=== PATIENT | male | born 1970 | race Caucasian/White ===

== ENCOUNTER 2017-03-30 08:44 | Day surgery (SDC) | payer OTHER ==
[2017-03-30] MEDS ORDERED: ceFAZolin 2 GM/50 ML 2 GM/50 ML BAG IV ONE (08:59)
[2017-03-30] MEDS ORDERED: LACTATED RINGERS 1,000 ML IV ONE ×2 (09:10→11:52)
[2017-03-30] MEDS ORDERED: MIDAZOLAM 2 MG/2 ML VIAL IVP ONE (10:00)
[2017-03-30] MEDS ORDERED: fentaNYL 100 MCG/2 ML VIAL IVP ONE (10:00)
[2017-03-30] MEDS ORDERED: GLYCOPYRROLATE 1 MG/5 ML VIAL IVP ONE (10:00)
[2017-03-30] MEDS ORDERED: NEOSTIGMINE 1 MG/1 ML 10 ML MDV IVP ONE (10:00)
[2017-03-30] MEDS ORDERED: DEXAMETHASONE 4 MG/ML VIAL IVP ONE (10:00)
[2017-03-30] MEDS ORDERED: ONDANSETRON 4 MG/2 ML VIAL IVP ONE (10:00)
[2017-03-30] MEDS ORDERED: PROPOFOL 200 MG/20 ML VIAL IVP ONE (10:00)
[2017-03-30] MEDS ORDERED: ROCURONIUM 50 MG/5 ML VIAL IVP ONE (10:00)
[2017-03-30] MEDS ORDERED: LIDOCAINE-MPF 2% 5 ML VIAL IM ONE (10:00)
[2017-03-30] MEDS ORDERED: BUPIVACAINE 0.25% PF 30 ML VIAL SUBQ ONE ×2 (10:38→11:09)
[2017-03-30] MEDS ORDERED: LIDOCAINE MPF 1%-EPI 1:200000 30 ML VIAL SUBQ ONE ×2 (10:39→11:09)
[2017-03-30] MEDS ORDERED: MEPERIDINE 50 MG/ML SYRINGE ONE (11:49)
--- NOTE | 2017-03-30 13:30 | OPERATIVE REPORT ---
DATE OF SERVICE: 03/30/2017 Physician: Viola Waldrop MD DATE OF SURGERY: 03/30/2017 SURGEON: Viola Waldrop MD PROCEDURE: Excision of upper back lipoma. PREOPERATIVE DIAGNOSIS: Upper back lipoma. POSTOPERATIVE DIAGNOSIS: Upper back lipoma. INDICATION FOR PROCEDURE: This is a 46-year-old male with a growth on his upper back for the past several years, which is increasing in size. FINDINGS: After obtaining informed consent from the patient, he was brought into the operating room and positioned in the prone position after being intubated by Anesthesia. Pressure points were cared for. SCD boots were applied. Preoperative antibiotics were administered. He was then prepped and draped in the usual sterile fashion, and a timeout was taken according to protocol. An 8 cm incision was created in the transverse fashion overlying the palpable upper back mass which was to the right of the midline. This was deepened down through the skin through the subcutaneous tissue to the lipoma. This lipoma was subsequently circumferentially dissected from the surrounding skin and subcutaneous tissue down to the level of the musculature. It was circumferentially dissected down to the musculature and eventually was able to be exteriorized and dissected off the musculature bed. There was some bleeding during this process, which was controlled with a combination of electrocautery and 3-0 Vicryl sutures. The lipoma was noted to be quite adherent to the surrounding tissues and required approximately 30 minutes of careful dissection to completely excise. Its measurements were noted to be 12 x 14 cm. The wound was then inspected and irrigated. Persistent lipomatous tissue was noted in the medial aspect of the wound. This was grasped with an Allis clamp and excised. This piece of lipoma was noted to be 5 x 4 cm. The cavity was then inspected and no residual lipomatous tissue was noted. The muscle bed was profusely irrigated and hemostasis was achieved using electrocautery. Due to the large cavity, a 10-Turkmen, round LOI drain was inserted through a lateral incision and sutured into place. The incision was then closed in layers with a deep layer consisting of interrupted 3-0 Vicryl, subcutaneous tissues of 3-0 interrupted Vicryl and a running 4-0 Monocryl. Benzoin and Steri-Strips and a sterile dressing were applied. The patient was subsequently extubated and taken to the recovery room in stable condition. ESTIMATED BLOOD LOSS: 30 mL COMPLICATIONS: None. SPECIMEN: Upper back lipoma. TD: 03/30/2017 14:29 MTDD
[2017-03-30 14:00] VITALS: BP 138/94
== END 2017-03-30 08:45 | disposition home or self-care (01) ==
LOC: SDS 08:44
PROVIDERS: ATTEND Surgery
PROC: 0JB70ZZ Excision of Back Subcutaneous Tissue and Fascia, Open Approach (ICD-10-PCS; principal; 2017-03-30 10:00)
DX: D17.1 Benign lipomatous neoplasm of skin and subcutaneous tissue of trunk (principal)
CPT/HCPCS: 21931; J0690; J7120; 88304

== ENCOUNTER 2021-04-28 05:22 | Inpatient (IN) | payer OTHER ==
[2021-04-28] MEDS ORDERED: SODIUM CHLORIDE 0.9% 1,000 ML IV STA (05:40)
[2021-04-28 05:52] LABS: BASOPHILS % (AUTO) 0.1 %; EOSINOPHILS % (AUTO) 0.1 %; HCT - HEMATOCRIT 45.2 % (42.0-52.0); HGB - HEMOGLOBIN 15.7 g/dL (14.0-18.0); LYMPHOCYTES # (AUTO) 1.3 10^3/uL (1.5-3.5); LYMPHOCYTES % (AUTO) 8.1 %; MEAN CORPUSCULAR HEMOGLOBIN 29.5 pg (27.0-31.0); MEAN CORPUSCULAR HGB CONC 34.7 g/dL (32.0-36.0); MEAN PLATELET VOLUME 8.6 fL (7.4-11.4); MONOCYTES # (AUTO) 1.2 10^3/uL (0.0-1.0); MONOCYTES % (AUTO) 7.3 %; NEUTROPHILS # (AUTO) 13.7 10^3/uL (1.5-6.6); PLT - PLATELET COUNT 259 10^3/uL (130-450); RED BLOOD COUNT 5.32 10^6/uL (4.70-6.10); RED CELL DISTRIBUTION WIDTH 12.3 % (12.0-15.0); WHITE BLOOD COUNT 16.4 x10^3/uL (4.8-10.8)
[2021-04-28 06:07] LABS: ALBUMIN 4.5 g/dL (3.2-5.5); ALBUMIN/GLOBULIN RATIO 1.1 (1.0-2.2); BILIRUBIN,TOTAL 1.8 mg/dL (0.2-1.0); CALCIUM 9.4 mg/dL (8.5-10.3); CREATININE 1.1 mg/dL (0.6-1.2); POTASSIUM 3.8 mmol/L (3.5-5.0); TOTAL PROTEIN 8.7 g/dL (6.7-8.2)
[2021-04-28] MEDS ORDERED: KETOROLAC 15 MG/ML VIAL IVP STA (06:12)
--- NOTE | 2021-04-28 06:33 | ED Physician Documentation ---
History of Present Illness - Stated complaint Stated Complaint: ABD PX - Chief complaint Chief Complaint: Abd Pain - History obtained from History obtained from: Patient - Additonal information Additional information: 50-year-old man, previously healthy, p/w RLQ pain gradual onset and intermittent X 2 days, currently 4/10, improving with lying still and worse with movement, nonradiating, aching quality, without associated symptoms. denies fever/chills, n/v/d, urinary sx. no history of abdominal surgeries. last BM was yesterday (soft brown stool). Review of Systems Ten Systems: 10 systems reviewed and negative Constitutional: denies: Fever, Chills GI: reports: Abdominal Pain. denies: Nausea, Vomiting, Diarrhea, Bloody / black stool : denies: Dysuria, Frequency, Hematuria PD PAST MEDICAL HISTORY - Past Medical History Past Medical History: Yes Cardiovascular: None Respiratory: None Endocrine/Autoimmune: None GI: None : None HEENT: None Psych: None Musculoskeletal: None Derm: Eczema - Past Surgical History Past Surgical History: Yes - Present Medications Home Medications: Ambulatory Orders Medication Instructions Recorded Confirmed Acetaminophen [Tylenol] 650 mg PO Q6H PRN 03/25/17 03/25/17 - Allergies Allergies/Adverse Reactions: Allergies Allergy/AdvReac Type Severity Reaction Status Date / Time No Known Drug Allergies Allergy Verified 04/28/21 05:33 - Social History Does the pt smoke?: No Smoking Status: Never smoker Does the pt drink ETOH?: Yes Does the pt have substance abuse?: No - Immunizations Immunizations are current?: Yes PD ED PE NORMAL - Vitals Vital signs reviewed: Yes - General General: Alert and oriented X 3, No acute distress, Well developed/nourished - HEENT HEENT: Atraumatic, PERRL, EOMI - Neck Neck: Supple, no meningeal sign - Cardiac Cardiac: RRR - Respiratory Respiratory: No respiratory distress, Clear bilaterally - Abdomen Abdomen: Other (RLQ and periumbilical ttp. otherwise ntnd) - Back Back: No CVA TTP - Derm Derm: Normal color, Warm and dry - Extremities Extremities: No deformity - Neuro Neuro: Alert and oriented X 3, No motor deficit, No sensory deficit - Psych Psych: Normal mood, Normal affect Results - Vitals Vitals: Vital Signs - 24 hr 04/28/21 05:29 Temperature 36.8 C Heart Rate 95 Respiratory 18 Rate Blood Pressure 143/99 H O2 Saturation 98 Oxygen O2 Source Room air - Labs Labs: Laboratory Tests 04/28/21 04/28/21 05:47 05:47 WBC 16.4 H RBC 5.32 Hgb 15.7 Hct 45.2 MCV 85.0 MCH 29.5 MCHC 34.7 RDW 12.3 Plt Count 259 MPV 8.6 Neut # (Auto) 13.7 H Lymph # (Auto) 1.3 L Stark # (Auto) 1.2 H Eos # (Auto) 0.0 Baso # (Auto) 0.0 Absolute Nucleated RBC 0.00 Nucleated RBC % 0.0 Sodium 134 L Potassium 3.8 Chloride 99 L Carbon Dioxide 24 Anion Gap 11.0 BUN 17 Creatinine 1.1 Estimated GFR (MDRD) 71 L Glucose 134 H Calcium 9.4 Total Bilirubin 1.8 H AST 59 H ALT 94 H Alkaline Phosphatase 150 H Total Protein 8.7 H Albumin 4.5 Globulin 4.2 Albumin/Globulin Ratio 1.1 Lipase 27 PD MEDICAL DECISION MAKING - ED course ED course: 50yM p/w RLQ pain X 2 days, with concern for possible appendicitis in setting of moderate leukocytosis and tender abdomen. CT a/p ordered and patient was provided with IV toradol. Patient with acute appendicitis, suggestion of perforation with small locules of gas superior to appendix and fluid deep to tip of appendix. Probable fecolith at appendix base. d/w Dr. Metz who will take to OR today. antibiotics and cultures ordered. Departure - Departure Disposition: ED Transfer to [facility] Clinical Impression: Abdominal pain Condition: Stable
[2021-04-28] MEDS ORDERED: IOVERSOL 320 100 ML VIAL IVP ONE ×2 (06:42→06:59)
[2021-04-28] MEDS ORDERED: PIPERACILLIN/TAZOBACTAM 3.375 GM in SODIUM CHLORIDE 0.9% MINIBAG 100 ML IV STA (07:14)
[2021-04-28 07:30] LABS: BILIRUBIN,URINE NEGATIVE (NEGATIVE); GLUCOSE, URINE (UA) NEGATIVE (NEGATIVE); KETONES,URINE (UA) NEGATIVE (NEGATIVE); LEUKOCYTE ESTERASE, URINE NEGATIVE (NEGATIVE); NITRITE,URINE NEGATIVE (NEGATIVE); OCCULT BLOOD,URINE SMALL (NEGATIVE); PROTEIN,URINE NEGATIVE (NEGATIVE); UROBILINOGEN,URINE 0.2 (NORMAL) E.U./dL (NORMAL)
[2021-04-28 07:42] LABS: BACTERIA,URINE None Seen /HPF (None Seen); CLARITY,URINE CLEAR (CLEAR); RBC,URINE None Seen /HPF (0-5); SQUAMOUS EPITHELIAL CELL,UR NONE SEEN (<= Few); WBC,URINE 0-3 /HPF (0-3)
--- NOTE | 2021-04-28 08:11 | CT Report ---
PROCEDURE: Abdomen/Pelvis W INDICATIONS: RLQ pain intermittent X 2 days, gradual onset CONTRAST: IV CONTRAST: Optiray 320 ml: 100 PO CONTRAST: *NO PO CONTRAST TECHNIQUE: After the administration of IV contrast, 5 mm thick sections acquired from the diaphragms to the symp hysis. 5 mm thick coronal and sagittal reformats were acquired. For radiation dose reduction, the f ollowing was used: automated exposure control, adjustment of mA and/or kV according to patient size. COMPARISON: None. FINDINGS: Image quality: Excellent. ABDOMEN: Lung bases: Lung bases are clear. Heart size is normal. Solid organs: Liver and spleen are normal in size and enhancement. An accessory splenule is inciden tally noted along the hilum of the primary spleen. Gallbladder wall does not appear thickened. B iliary system is non dilated. Pancreas enhances normally. No adrenal nodules. Kidneys demonstrate normal size and enhancement. There is an extrarenal pelvis seen on the right. Peritoneum and bowel: The appendix is thickened and inflamed with a hyperenhancing wall. The appendi x measures up to 13 mm. Surrounding fluid can be seen, with a few bubbles of extraluminal gas seen. N o focal fluid collection is seen to suggest abscess. There is a mild amount of ascites seen, which is largely collected within the pelvis. Within the proximal appendix, a hyperdense appendicolith can be seen, as on series 6 image 19 and on series 3 image 66. Regional wall thickening can be seen, including involving the terminal ileum and cecum. No dilated loops of small bowel are seen. No significant colonic abnormality can be seen. Nodes and vessels: No retroperitoneal or mesenteric adenopathy by size criteria. Aorta and inferior vena cava are normal in size. Miscellaneous: No ventral hernias. PELVIS: Genitourinary: Bladder wall thickness is normal. Miscellaneous: No inguinal hernias or adenopathy. Bones: No suspicious bony lesions. No vertebral body compression fractures. IMPRESSION: Perforated appendicitis, with a thickened, inflamed appendix with a proximal appendicoli th. A few bubbles of free air can be seen. No drainable abscess is seen. Regional inflammatory changes are seen and there is a small amount of ascites. Incidental note is made of: Accessory splenule Extrarenal pelvis of the right kidney. Note: No significant discrepancy from the preliminary report. Reviewed by: Sanchez Heredia MD on 04/28/2021 7:09 AM [facility] Approved by: Sanchez Heredia MD on 04/28/2021 7:09 AM [facility] Station ID: [id number]
[2021-04-28 10:46] LABS: B. PARAPERTUSSIS- RESP PCR PAN NOT DETECTED; B. PERTUSSIS- RESP PCR PANEL NOT DETECTED; C. PNEUMONIAE- RESP PCR PANEL NOT DETECTED; CORONAVIRUS 229E-RESP PCR NOT DETECTED; CORONAVIRUS HKU1-RESP PCR NOT DETECTED; CORONAVIRUS NL63-RESP PCR NOT DETECTED; CORONAVIRUS OC43-RESP PCR NOT DETECTED; HUMAN METAPNEUMOVIRUS NOT DETECTED; INFLUENZA A- RESP PCR PANEL NOT DETECTED; INFLUENZA B - RESP PCR PANEL NOT DETECTED; M. PNEUMONIAE- RESP PCR PANEL NOT DETECTED; PARAINFLUENZA VIRUS 1 NOT DETECTED; PARAINFLUENZA VIRUS 2 NOT DETECTED; PARAINFLUENZA VIRUS 3 NOT DETECTED; PARAINFLUENZA VIRUS 4 NOT DETECTED; RHINOVIRUS/ENTEROVIRUS NOT DETECTED; RSV- RESP PCR PANEL NOT DETECTED
[2021-04-28 10:47] LABS: SARS-CoV-2 -RESP PCR PANEL DETECTED
[2021-04-28] MEDS ORDERED: ROCURONIUM 50 MG/5 ML VIAL ONE (10:57)
[2021-04-28] MEDS ORDERED: PROPOFOL 200 MG/20 ML VIAL IVP ONE (10:57)
[2021-04-28] MEDS ORDERED: LIDOCAINE-MPF 2% 5 ML VIAL ONE (10:57)
[2021-04-28] MEDS ORDERED: MIDAZOLAM 2 MG/2 ML VIAL ONE (10:58)
[2021-04-28] MEDS ORDERED: fentaNYL 100 MCG/2 ML VIAL ONE ×2 (10:58→12:54)
[2021-04-28] MEDS ORDERED: BUPIVACAINE 0.5% PF 10 ML VIAL ONE (11:00)
--- NOTE | 2021-04-28 11:16 | ANESTHESIA ---
Pre-Anesthesia VS, & Labs - Diagnosis appendicitis - Procedure laparoscopic appendectomy Vital Signs: Temp Pulse Resp BP Pulse Ox 36.8 C 79 17 132/84 H 96 04/28/21 05:29 04/28/21 09:00 04/28/21 09:00 04/28/21 09:00 04/28/21 09:00 Height: 5 ft 7 in Weight (kg): 80.286 kg Body Mass Index: 27.7 BMI Classification: Overweight - NPO >8 hours - Lab Results Current Lab Results: Laboratory Tests 04/28/21 08:08: Lactic Acid 0.9 04/28/21 05:47: Sodium 134 L, Potassium 3.8, Chloride 99 L, Carbon Dioxide 24, Anion Gap 11.0, BUN 17, Creatinine 1.1, Estimated GFR (MDRD) 71 L, Glucose 134 H , Calcium 9.4, Total Bilirubin 1.8 H, AST 59 H, ALT 94 H, Alkaline Phosphatase 150 H, Total Protein 8.7 H, Albumin 4.5, Globulin 4.2, Albumin/Globulin Ratio 1.1, Lipase 27 04/28/21 05:47: WBC 16.4 H, RBC 5.32, Hgb 15.7, Hct 45.2, MCV 85.0, MCH 29.5, MCHC 34.7, RDW 12.3, Plt Count 259, MPV 8.6, Neut # (Auto) 13.7 H, Lymph # (Auto) 1.3 L, Boundary # (Auto) 1.2 H, Eos # (Auto) 0.0, Baso # (Auto) 0.0, Absolute Nucleated RBC 0.00, Nucleated RBC % 0.0 Fish Bones: 04/28/21 05:47 04/28/21 05:47 Home Medications and Allergies Acetaminophen [Tylenol] 650 mg PO Q6H PRN 03/25/17 Allergies/Adverse Reactions: Allergies Allergy/AdvReac Type Severity Reaction Status Date / Time No Known Drug Allergies Allergy Verified 04/28/21 05:33 Anes History & Medical History - Anesthetic History Anesthesia Complications: reports: No previous complications - Medical History Cardiovascular: reports: None Pulmonary: reports: None Gastrointestinal: reports: None Urinary: reports: None Musculoskeletal: reports: None Endocrine/Autoimmune: reports: None Skin: reports: Eczema Smoking Status: Never smoker History of Cancer?: No Exam General: Alert, Oriented x3 Dental: WNL Mouth Opening: Greater than 4 Fingerbreadths Mallampati classification: II Thyromental Distance: greater than 6 cm Respiratory: Lungs clear Cardiovascular: Regular rate Plan Anesthesia Type: General Consent for Procedure(s) Verified and Reviewed: Yes Code Status: Attempt Resuscitation ASA classification: 2-Mild systemic disease Is this case an emergency?: Yes
[2021-04-28] MEDS ORDERED: HYDROmorphone 0.5 MG/0.5 ML SYRINGE IVP PRN (11:28)
[2021-04-28] MEDS ORDERED: MORPHINE 2 MG/ML CARPUJECT IVP PRN (11:28)
[2021-04-28] MEDS ORDERED: ATROPINE ABBOJECT 1 MG/10 ML SYRINGE IVP PRN (11:28)
[2021-04-28] MEDS ORDERED: ePHEDrine 50 MG/ML VIAL IVP PRN (11:28)
[2021-04-28] MEDS ORDERED: METOCLOPRAMIDE 10 MG/2 ML VIAL IVP PRN (11:28)
[2021-04-28] MEDS ORDERED: fentaNYL 100 MCG/2 ML VIAL IVP PRN (11:28)
[2021-04-28] MEDS ORDERED: NALOXONE 0.4 MG/ML VIAL IVP PRN (11:28)
[2021-04-28] MEDS ORDERED: ONDANSETRON 4 MG/2 ML VIAL IVP PRN (11:28)
--- NOTE | 2021-04-28 11:38 | HISTORY & PHYSICAL EXAMINATION ---
Chief Complaint - Chief Complaint Chief Complaint: abdominal pain x 2 days History of Present Illness - Admitted From Admitted From:: ED - History Obtained From Records Reviewed: yes History obtained from: pt Exam Limitations: nonne - History of Present Illness HPI Comment/Other: 2 days progressive right lower quadrant pain wbc 16 ct appendicitis with fecalith and significant stranding History - Past Medical History Cardiovascular: reports: None Respiratory: reports: None Endocrine/Autoimmune: reports: None GI: reports: None : reports: None HEENT: reports: None Psych: reports: None Musculoskeletal: reports: None Derm: reports: Eczema MRSA Hx?: No Meds/Allgy - Home Medications Home Medications: Ambulatory Orders Medication Instructions Recorded Confirmed Acetaminophen [Tylenol] 650 mg PO Q6H PRN 03/25/17 03/25/17 - Allergies Allergies/Adverse Reactions: Allergies Allergy/AdvReac Type Severity Reaction Status Date / Time No Known Drug Allergies Allergy Verified 04/28/21 05:33 Review of Systems - Other Findings Other Findings: 10 pt ros as above otherwise unremarkable covid 2 weeks ago with mild symptoms no symptoms now Exam - Vital Signs Vital Signs: Vital Signs x48h Temp Pulse Resp BP Pulse Ox 04/28/21 11:00 93 19 140/83 H 96 04/28/21 09:00 79 17 132/84 H 96 04/28/21 07:33 90 18 143/100 H 97 04/28/21 05:29 36.8 C 95 18 143/99 H 98 - Physical Exam General Appearance: positive: No acute distress, Alert Eyes Bilateral: positive: PERRL, EOMI ENT: positive: No signs of dehydration Neck: positive: No JVD Respiratory: positive: No respiratory distress, Breath sounds nml Cardiovascular: positive: Regular rate & rhythm Abdomen: positive: No distention, Other (right lower quadrant tenderness) Neurologic/Psychiatric: positive: Oriented x3 Conclusion/Plan - Problem List (1) Appendicitis Conclusion/Plan: plan appendectomy. parq held and consent obtained - Lab Results Fish Bones: 04/28/21 05:47 04/28/21 05:47
[2021-04-28] MEDS ORDERED: LACTATED RINGERS 1,000 ML IV SCH (12:00)
[2021-04-28] MEDS ORDERED: ACETAMINOPHEN 1,000 MG/100 ML 100 ML IV ONE (12:11)
[2021-04-28] MEDS ORDERED: BUPIVACAINE 0.5% PF 10 ML VIAL IM ONE (12:11)
[2021-04-28] MEDS ORDERED: HYDROcod/ACETAM 5/325 MG TABLET PO PRN (13:20)
[2021-04-28] MEDS ORDERED: ONDANSETRON ODT 4 MG TABLET TL PRN (13:20)
[2021-04-28] MEDS ORDERED: LACTATED RINGERS 1,000 ML IV ONE (13:24)
--- NOTE | 2021-04-28 13:27 | OPERATIVE REPORT ---
Operative Report - General Procedure Date: 04/28/21 Planned Procedure: laparoscopic appendectomy Pre-Op Diagnosis: ruptured appendicitis Procedure Performed: laparoscopic appendectomy Post Op Diagnosis: ruptured appendicitis - Procedure Note Primary Surgeon: arely rutledge Anesthesia Technique: General ET tube, Local Pathology: appendix and fecalith Estimated Blood Loss (mL): 5 Drain/Tube Type: Panfilo Fuentes flat drain, Other Indications: appendicitis with localized peritonitis, ruptured with fecalith Findings: as above Complications: none - Other Other Information/Narrative: The patient was properly identified brought to the operating room and placed in supine position. The patient was previously given antibiotics. Sequential compression devices were placed. General endotracheal anesthesia was induced. The patient was prepped and draped in a sterile fashion. Local anesthetic was given to incision areas. An infraumbilical incision was made in and proceeded down to the fascia. The fascia was incised lifted upwards and abdomen entered with a Veress needle. CO2 was insufflated to a pressure of 15. A 12 mm trocar was placed with 30 degree scope. There was no evidence of injury from Veress needle or trocar placement. Under direct vision a 5 mm trocar was placed suprapubic and a 5 mm trocar was placed in the right upper quadrant. Appendix was identified and retracted anteriorly. Peritoneal attachments were taken down with careful use of cautery. Appendix was mobilized more anterior. A plane was then created between the mesoappendix and the appendix at the cecum. Appendix was divided with an Endo TANNA intestinal load to include up a small portion of the cecum. The mesoappendix was then divided with an Endo TANNA vascular load. There was secure closure at the cecum and hemostasis was assured. The appendix was brought out. The abdomen was thoroughly irrigated and hemostasis again assured. Trochars were removed under direct vision. Fascia at the infraumbilical site was closed with a running 0 Vicryl suture. Subcutaneous tissue was irrigated and skin reapproximated with buried interrupted 4-0 Monocryl. Dressings were applied. The patient tolerated the procedure well was awakened and brought to recovery in good condition.
--- NOTE | 2021-04-28 13:52 | ANESTHESIA POST OP EVALUATION ---
Anesthesia Post Eval - Post Anesthesia Eval Vitals: Last Vital Signs Temp 37 C 04/28/21 13:40 Pulse 84 04/28/21 13:45 Resp 18 04/28/21 13:45 BP 133/88 H 04/28/21 13:45 Pulse Ox 95 04/28/21 13:45 CV Function Including HR & BP: Stable Pain Control: Satisfactory Nausea & Vomiting: Negative Mental Status: Baseline Respiratory Status: Airway Patent Hydration Status: Satisfactory Anesthesia Complications: None
[2021-04-28] MEDS ORDERED: PIPERACILLIN/TAZOBACTAM 3.375 GM in SODIUM CHLORIDE 0.9% MINIBAG 100 ML IV ONE (14:00)
[2021-04-28] MEDS: D5.45NS W/20 MEQ KCL 1,000 ML IV SCH ×2 (14:25→23:54)
[2021-04-28] MEDS: HYDROmorphone 0.5 MG/0.5 ML SYRINGE IVP PRN ×5 (14:45→23:15)
[2021-04-28] MEDS: ONDANSETRON 4 MG/2 ML VIAL IVP PRN ×2 (17:01→23:21)
[2021-04-28] MEDS: PIPERACILLIN/TAZOBACTAM 3.375 GM in SODIUM CHLORIDE 0.9% MINIBAG 100 ML IV SCH (18:17)
[2021-04-28] MEDS: KETOROLAC 15 MG/ML VIAL IVP PRN (18:59)
[2021-04-28] MEDS: SODIUM CHLORIDE FLUSH 0.9% 10 ML SYRINGE IVP SCH (19:03)
[2021-04-28] MEDS: ACETAMINOPHEN 325 MG TABLET PO PRN (19:34)
[2021-04-28] MEDS: oxyCODONE 5 MG TABLET PO PRN ×2 (19:34→23:54)
[2021-04-28] MEDS: FAMOTIDINE 20 MG TABLET PO SCH (20:55)
[2021-04-28] MEDS: SODIUM CHLORIDE FLUSH 0.9% 10 ML SYRINGE IVP PRN ×2 (20:56→23:21)
[2021-04-29] MEDS: KETOROLAC 15 MG/ML VIAL IVP PRN ×3 (01:25→21:00)
[2021-04-29] MEDS: PIPERACILLIN/TAZOBACTAM 3.375 GM in SODIUM CHLORIDE 0.9% MINIBAG 100 ML IV SCH ×3 (01:25→17:02)
[2021-04-29] MEDS: SODIUM CHLORIDE FLUSH 0.9% 10 ML SYRINGE IVP SCH ×3 (01:25→15:45)
[2021-04-29] MEDS: oxyCODONE 5 MG TABLET PO PRN ×4 (04:23→16:56)
[2021-04-29] MEDS: ACETAMINOPHEN 325 MG TABLET PO PRN ×3 (04:24→16:57)
[2021-04-29] MEDS: FAMOTIDINE 20 MG TABLET PO SCH (08:28)
[2021-04-29] MEDS: ONDANSETRON 4 MG/2 ML VIAL IVP PRN (09:24)
[2021-04-29] MEDS: HYDROmorphone 0.5 MG/0.5 ML SYRINGE IVP PRN (09:24)
[2021-04-29] MEDS: D5.45NS W/20 MEQ KCL 1,000 ML IV SCH ×2 (09:32→20:50)
[2021-04-29] MEDS ORDERED: MAG HYDROX/AL HYDROX/SIMETH 30 ML UDC PO PRN (10:39)
--- NOTE | 2021-04-29 10:42 | PROVIDER PROGRESS NOTE ---
Subjective - Prog Note Date Prog Note Date: 04/29/21 - Subjective Pt reports feeling: No change (nausea and painful) Objective - Vital Signs/Intake & Output Reviewed Vital Signs: Yes Vital Signs: Vital Signs x48h Temp Pulse Resp BP Pulse Ox 04/29/21 08:00 36.8 C 87 16 123/71 93 04/29/21 04:44 36.6 C 84 19 120/69 90 L Intake & Output: Intake & Output 04/26/21 04/27/21 04/28/21 04/29/21 23:59 23:59 23:59 23:59 Intake Total 2898.334 1403.333 Output Total 40 30 Balance 2858.334 1373.333 - Objective General Appearance: positive: No acute distress, Alert Eyes Bilateral: positive: PERRL, EOMI ENT: positive: No signs of dehydration Neck: positive: No JVD Respiratory: positive: Chest non-tender Abdomen: positive: Non-tender, No distention Neurologic/Psychiatric: positive: Oriented x3 - Lab Results Fish Bones: 04/28/21 05:47 04/28/21 05:47 Other Labs: Lab Results x24hrs 04/28/21 Range/Units 07:56 Nasal Adenovirus (PCR) NOT DETECTED Nasal B. parapertussis DNA (PCR) NOT DETECTED Nasal Coronavir 229E PCR NOT DETECTED Nasal Coronavir HKU1 PCR NOT DETECTED Nasal Coronavir NL63 PCR NOT DETECTED Nasal Coronavir OC43 PCR NOT DETECTED Nasal Enterovir/Rhinovir PCR NOT DETECTED Nasal Influenza B PCR NOT DETECTED Nasal Influenza A PCR NOT DETECTED Nasal Parainfluen 1 PCR NOT DETECTED Nasal Parainfluen 2 PCR NOT DETECTED Nasal Parainfluen 3 PCR NOT DETECTED Nasal Parainfluen 4 PCR NOT DETECTED Nasal RSV (PCR) NOT DETECTED Nasal B.pertussis DNA PCR NOT DETECTED Nasal C.pneumoniae (PCR) NOT DETECTED Allan Human Metapneumo PCR NOT DETECTED Nasal M.pneumoniae (PCR) NOT DETECTED Nasal SARS-CoV-2 (PCR) DETECTED A Assessment/Plan - Problem List (1) Appendicitis Impression: ruptured appendix nausea and painful continue present care poor po and need for O2, ivf, and IV pain meds
[2021-04-30] MEDS: oxyCODONE 5 MG TABLET PO PRN ×5 (00:33→20:18)
[2021-04-30] MEDS: SODIUM CHLORIDE FLUSH 0.9% 10 ML SYRINGE IVP SCH ×3 (00:33→16:25)
[2021-04-30] MEDS: PIPERACILLIN/TAZOBACTAM 3.375 GM in SODIUM CHLORIDE 0.9% MINIBAG 100 ML IV SCH ×3 (02:06→18:01)
[2021-04-30] MEDS: ACETAMINOPHEN 325 MG TABLET PO PRN ×4 (02:13→20:17)
--- NOTE | 2021-04-30 10:18 | PHARMACY PROGRESS NOTE ---
- Best Possible Medication History Admit Date and Time: 04/28/21 1320 Processed by: Pharmacy Medication History completed: Yes Patient Interview: Pt interview ONLY source As the person ultimately responsible for medication therapy, providers are able to order a medication from an existing home medication list in [facility] via the "Reconcile Routine" prior to Confirmation of that medication by senior support analyst. Such practice is discouraged except when the physician, in their clinical judgment, deems that a medical need exists for a medication without regard to previous use.
--- NOTE | 2021-04-30 10:55 | PROVIDER PROGRESS NOTE ---
Subjective - Subjective Pt reports feeling: Improved (less pain and nausea however still uncomfortable and poor appetite) Objective - Vital Signs/Intake & Output Reviewed Vital Signs: Yes Vital Signs: Vital Signs x48h Temp Pulse Resp BP Pulse Ox 04/30/21 07:47 36.7 C 85 18 139/90 H 92 Intake & Output: Intake & Output 04/27/21 04/28/21 04/29/21 04/30/21 23:59 23:59 23:59 23:59 Intake Total 2898.334 3303.333 996.666 Output Total 40 97 100 Balance 2858.334 3206.333 896.666 - Objective General Appearance: positive: No acute distress, Alert Eyes Bilateral: positive: PERRL, EOMI Respiratory: positive: No respiratory distress Abdomen: positive: Other (mild distension michael cloudy) Neurologic/Psychiatric: positive: Oriented x3 - Lab Results Fish Bones: 04/28/21 05:47 04/28/21 05:47 Assessment/Plan - Problem List (1) Appendicitis Impression: ruptured appendix. ileus slowly resolving continue present care
[2021-04-30] MEDS: HYDROmorphone 0.5 MG/0.5 ML SYRINGE IVP PRN (13:02)
[2021-04-30] MEDS: ONDANSETRON 4 MG/2 ML VIAL IVP PRN (13:02)
[2021-04-30] MEDS: SODIUM CHLORIDE FLUSH 0.9% 10 ML SYRINGE IVP PRN (13:03)
[2021-04-30] MEDS: D5.45NS W/20 MEQ KCL 1,000 ML IV SCH ×2 (14:07→14:44)
[2021-05-01] MEDS: oxyCODONE 5 MG TABLET PO PRN ×3 (00:13→08:50)
[2021-05-01] MEDS: ACETAMINOPHEN 325 MG TABLET PO PRN ×3 (00:14→08:50)
[2021-05-01] MEDS: D5.45NS W/20 MEQ KCL 1,000 ML IV SCH (01:09)
[2021-05-01] MEDS: PIPERACILLIN/TAZOBACTAM 3.375 GM in SODIUM CHLORIDE 0.9% MINIBAG 100 ML IV SCH (01:11)
[2021-05-01] MEDS: SODIUM CHLORIDE FLUSH 0.9% 10 ML SYRINGE IVP SCH ×2 (01:15→09:42)
[2021-05-01 07:41] VITALS: BP 125/79
--- NOTE | 2021-05-01 08:57 | Discharge Plan ---
Discharge Plan Problem Reviewed?: Yes Disposition: Home, Self Care Condition: Good Prescriptions: oxyCODONE/ACET 5/325 [Percocet 5 mg/325 mg] 1 each PO Q4-6H PRN #25 tablet PRN Reason: Pain Diet: Regular Activity Restrictions: No Restrictions Shower Restrictions: No (change dressings as needed) Driving Restrictions: Yes (no driving while taking prescription pain pills) Instruction Topics: Appendectomy Laparoscopic Dc Health Concerns: recent ruptured appendix Plan of Treatment: appendectomy, iv antibiotics, drain placement performed Assessment: doing well 3 days after surgery Additional Instructions or Follow Up instructions: call for incision area redness, fever over 101, continued nausea and vomiting, any concerns call to make an appointment in the surgery office [phone] No Smoking: If you smoke, Please STOP! Call for help. Follow-up with: Alejandro Metz MD [Provider Admit Priv/Credential] -
--- NOTE | 2021-05-01 09:02 | DISCHARGE SUMMARY ---
"Discharge Summary Admit Date: 04/28/21 Discharge Date: 05/01/21 Discharging Provider: arely rutledge md Discharge Facility Name: [facility] - DIAGNOSES Admission Diagnoses: ruptured appendix Discharge Diagnoses with Status of Each Condition: ruptured appendix - HPI History of Present Illness: present to ED with 2 days abdominal pain and was found to have a ruptured appendix on ct scan - CONSULTS | PROCEDURES Procedures: appendectomy and drain placement 04/28/2021 - HOSPITAL COURSE Hospital Course: ileus gradually resolved. home in good condition 05/01/2021 - ALLERGIES Allergies/Adverse Reactions: Allergies Allergy/AdvReac Type Severity Reaction Status Date / Time No Known Drug Allergies Allergy Verified 04/28/21 05:33 - MEDICATIONS Home Medications: Ambulatory Orders Medication Instructions Recorded Confirmed Acetaminophen [Tylenol] 650 mg PO Q6H PRN 03/25/17 04/30/21 oxyCODONE/ACET 5/325 [Percocet 5 1 each PO Q4-6H PRN #25 tablet 05/01/21 mg/325 mg] - PHYSICAL EXAM AT DISCHARGE General Appearance: positive: No acute distress, Alert Eyes Bilateral: positive: PERRL, EOMI ENT: positive: No signs of dehydration Neck: positive: No JVD Respiratory: positive: No respiratory distress Abdomen: positive: Non-tender, No distention, Other (michael serous) Neurologic/Psychiatric: positive: Oriented x3 - LABS Result Diagrams: 04/28/21 05:47 04/28/21 05:47 - DIAGNOSTIC IMAGING Diagnostic Imaging Results: Read independently - FOLLOW UP Follow Up: arely rutledge md please call to make an appointment [phone]"
== END 2021-05-01 10:15 | disposition home or self-care (01) | DRG 339 ==
LOC: ED 05:22 → SDS 11:41 → MS2 13:20
PROVIDERS: ADMIT Surgery; ATTEND Surgery
PROC: 0DTJ4ZZ Resection of Appendix, Percutaneous Endoscopic Approach (ICD-10-PCS; principal; 2021-04-28 11:30)
DX: K35.32 Acute appendicitis with perforation, localized peritonitis, and gangrene, without abscess (principal); K91.89 Other postprocedural complications and disorders of digestive system; K56.7 Ileus, unspecified; Z20.822 Contact with and (suspected) exposure to COVID-19
CPT/HCPCS: 0202U; 36415; 44970; 74177; 80053; 81001; 83605; 83690; 85025; 87040; 96365; 96375; 99284; 99285; A9270; J0131; J1170; J7120; Q9967; 81003; 87086